=== PATIENT | female | born 1950 | race Caucasian/White ===

== ENCOUNTER 2021-02-03 09:20 | Emergency (ER) | payer MEDICARE, BC ==
[~2021-02-03] VITALS: Ht 165.1 cm; Wt 81.0 kg
[~2021-02-03 09:20] MED LIST: ASPI-482 PO; BUDE10.2 IH; DULO60CA6 PO; FLUO25PO MC; INSU100C SQ; INSU100V8 SQ; LIPITOR80 MG PO; LOSA50TA86 PO; MELO15TA23 PO; POTA99TA PO; RANI-376 PO; TRIA1TAB5 PO
--- NOTE | 2021-02-03 09:51 | EKG ---
[address] [address] Test Date: 2021-02-03 Test Time: 09:25:55 Pat Name: JALEESA FLORES Department: Room: Gender: F Insurance Investigator: : 1950 Requested By: TIM CHIU Order Number: [id number] Reading MD: Measurements Intervals [place] Rate: 119 P: 38 NM: 120 QRS: 17 QRSD: 76 T: 28 QT: 308 QTc: 440 Interpretive Statements SINUS TACHYCARDIA OTHERWISE NORMAL ECG RI6.02 No previous ECG available for comparison
[2021-02-03 10:30] LABS: BASO % 1 % (0-3); EOS % 0 % (0-3); HEMATOCRIT 44.5 % (36.0-47.0); HEMOGLOBIN 14.7 g/dL (12.0-15.5); LYMPH # 1.1 x10^3/uL (1.0-4.8); LYMPH % 12 % (24-48); MEAN CORPUSCULAR HEMOGLOBIN 30 pg (25-35); MEAN CORPUSCULAR HGB CONC 33 g/dL (31-37); MEAN CORPUSCULAR VOLUME 90 fL (79-100); MONO # 0.5 x10^3/uL (0.0-1.1); MONO % 6 % (0-9); NEUT # 7.4 x10^3uL (1.8-7.7); NEUT % 81 % (31-73); PLATELET COUNT 253 x10^3/uL (140-400); RED BLOOD COUNT 4.94 x10^6/uL (3.50-5.40); RED CELL DISTRIBUTION WIDTH 14.1 % (11.5-14.5); WHITE BLOOD COUNT 9.1 x10^3/uL (4.0-11.0)
--- NOTE | 2021-02-03 10:39 | RAD ---
XR CHEST 1V History: Reason: weakness / Spl. Instructions: / History: Comparison: September 08, 2011 Findings: No consolidation or pleural effusion. Normal heart size. No pneumothorax. Postoperative changes lower cervical spine. Prior granulomatous disease within the chest. Impression: 1. No acute cardiopulmonary process. Electronically signed by: Mian Zapata DO (02/03/2021 10:37 AM) [id number]
[2021-02-03] MEDS ORDERED: CONTRAST GIVEN. MC PRN (10:45)
[2021-02-03] MEDS ORDERED: IOHEXOL 350 MG/ML 100 ML VIAL. IV ONE ×3 (10:45→11:15)
[2021-02-03 10:49] LABS: CALCIUM 8.9 mg/dL (8.5-10.1); CREATININE 0.8 mg/dL (0.6-1.0); GFR 70.5; POTASSIUM 4.4 mmol/L (3.5-5.1)
[2021-02-03 10:50] LABS: ACETAMIN < 2.0 mcg/mL (10-30); SALIC < 2.8 mg/dL (2.8-20.0)
--- NOTE | 2021-02-03 11:00 | RAD ---
Noncontrast CT scan of the head without comparison for weakness. TECHNIQUE: Contiguous axial CT images are obtained from skull base to the vertex. No IV contrast was administered. FINDINGS: There is no evidence of acute territorial infarction, or intracranial hemorrhage. There is no mass, mass effect, or midline shift. The ventricles and subarachnoid spaces are grossly unremarkab le. No extra axial fluid collection identified. The posterior fossa, brainstem, and bilateral orbits are normal. Vague hypodensity within the insular deep white matter is likely sequela of old lacunar i nfarct. There is preservation of normal density within the insular cortex and basal ganglia. Mastoid air cells are clear. Visualized ethmoid and sphenoid sinuses are clear. Within the frontal sinuses, t here is a 2.4 cm circumscribed slightly expansile osseous tumor with dense internal calcified matrix, and a generally benign appearance. 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 Less likely given this patient's age is fibrous dysplasia. Other etiologies of fibro-osseous tumo rs cannot be excluded. MRI may be of benefit to reinforce impression of benignity. IMPRESSION: 1. No acute intracranial abnormality. 2. 2.4 cm osseous tumor of the frontal sinus, with probably benign imaging features at CT scan. 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 MRI is recommended to further evaluate and perhaps reinforce the impression of benignity. PQRS Compliance Statement: One or more of the following individualized dose reduction techniques were utilized for this examinat ion: 1. Automated exposure control 2. Adjustment of the mA and/or kV according to patient size 3. Use of iterative reconstruction technique Electronically signed by: Patricio Kelley MD (02/03/2021 10:58 AM) [id number]
[2021-02-03 11:03] LABS: ALBUMIN 3.2 g/dL (3.4-5.0); DIRECT BILIRUBIN 0.1 mg/dL (0.0-0.2); MAGNESIUM 1.7 mg/dL (1.8-2.4); TOTAL BILIRUBIN 0.4 mg/dL (0.2-1.0); TOTAL PROTEIN 7.3 g/dL (6.4-8.2)
--- NOTE | 2021-02-03 12:39 | RAD ---
CTA HEAD AND NECK W/WO CONTRAST History:Reason: dizzy/weak on left side / Spl. Instructions: / History: Technique: After bolus of intravenous contrast, volumetric CT data acquisition was acquired of the he ad and neck. Multiplanar reconstruction images to include MIP and 3-D reconstruction images are submi tted. Exposure: One or more of the following individualized dose reduction techniques were utilized for thi s examination: 1. Automated exposure control 2. Adjustment of the mA and/or kV according to patient size 3. Use of iterative reconstruction technique. Comparison: Head CT February 10, 2014 and February 03, 2021 Any determination of stenosis is based on NASCET criteria. Head CTA: ICA: No stenosis, occlusion or aneurysm. Mild atheromatous plaque within the carotid siphons. MCA: No stenosis, occlusion or aneurysm. REVA: No stenosis, occlusion or aneurysm. DENTAL THERAPIST: No stenosis, occlusion or aneurysm. origin of the right posterior cerebral artery. Patent left posterior communicating artery. Basilar artery: No stenosis, occlusion or aneurysm. Distal vertebral arteries: No stenosis, occlusion or aneurysm. CT angiogram neck: Aortic arch: Mild atheromatous plaque within the aortic arch and branch vessels. Common carotid arteries: No stenosis, occlusion or dissection. Internal carotid arteries: No stenosis, occlusion or dissection. Mild atheromatous plaque within the proximal internal carotid arteries. External carotid arteries: Patent Vertebral arteries: No stenosis, occlusion or dissection. Imaged lung apices are unremarkable. Small left thyroid nodule measures 1.1 x 0.4 cm. 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 Postoperative ch anges cervical spine interest acquisition and interbody fusion C5-C7. Grade 1 anterolisthesis C4 on C 5. Multilevel cervical spondylosis. Facet fusion C2-C3. Facet arthropathy, left greater than right. Impression: 1. No arterial stenosis or occlusion within the head or neck. 2. Mild atheromatous plaque. 3. Left frontal sinus osteoma, unchanged compared to 2013. 4. Small right thyroid nodule. Electronically signed by: Mian Zapata DO (02/03/2021 12:37 PM) [id number]
--- NOTE | 2021-02-03 12:51 | PHYS DOC ---
Past History Past Medical History: Depression, Diabetes, GERD, High Cholesterol, Other Additional Past Medical Histor: chronic pain, neuropathy, RLS, factor 5 leiden Alcohol Use: None General Adult EDM: Chief Complaint: ALTERED MENTAL STATUS HPI: HPI: 70 yo F PMH factor V leiden, and TIA 2019 presents to the ED with complaints of left-sided weakness that started when patient woke up this morning, last known well was around 9 PM last night. Review of Systems: Review of Systems: Constitutional: Denies fever or chills Eyes: Denies change in visual acuity HENT: Denies nasal congestion or sore throat Respiratory: Denies cough or shortness of breath Cardiovascular: Denies chest pain or edema GI: Denies abdominal pain, nausea, vomiting, bloody stools or diarrhea : Denies dysuria Musculoskeletal: Denies back pain or joint pain Integument: Denies rash Neurologic: Denies headache, focal weakness or sensory changes Endocrine: Denies polyuria or polydipsia Lymphatic: Denies swollen glands Psychiatric: Denies depression or anxiety Current Medications: Current Meds: Current Medications Medications (Trade) Dose Ordered Sig/Cristina Start Time Stop Time Status Last Admin Dose Admin Info (Do NOT chart on this entry -- for MONITORING) 1 each PRN DAILY PRN 02/03/21 10:45 02/05/21 10:44 Iohexol (Omnipaque 350 Mg/ml) 100 ml 1X ONCE 02/03/21 11:15 02/03/21 11:16 UNV Allergies: Allergies: Allergies Coded Allergies Type Severity Reaction Last Updated Verified acetaminophen Allergy Intermediate SWELLING AND RASH 04/03/14 Yes hydrocodone Allergy Intermediate SWELLING AND RASH 04/03/14 Yes Sulfa (Sulfonamide Antibiotics) Allergy Mild RASH 04/03/14 No cephalexin Allergy Mild RASH 04/03/14 No cyclobenzaprine Allergy Mild SWELLING 04/03/14 No levofloxacin Allergy Mild RESPIRATORY DISTRESS 04/03/14 Yes meperidine Allergy Mild NAUSEA VOMITTING 04/03/14 No povidone-iodine Allergy Mild RASH 04/03/14 Yes simvastatin Allergy Mild MUSCLE CRAMPS 04/03/14 No codeine Adverse Reaction Severe RESPIRATORY ARREST 04/03/14 Yes chlorpheniramine Adverse Reaction Intermediate TACHYCARDIA 04/03/14 Yes pseudoephedrine Adverse Reaction Intermediate TACHYCARDIA 04/03/14 Yes Physical Exam: PE: Constitutional: Well developed, well nourished, no acute distress, non-toxic appearance. HENT: Normocephalic, atraumatic, Eyes: PERRLA, EOMI, conjunctiva normal, no discharge. Neck: Normal range of motion, supple, Cardiovascular: S1/2 present, regular rhythm Lungs & Thorax: Speaking in full sentences, bilateral equal chest rise, no tachypnea or increased work of breathing Abdomen: soft, no tenderness, Skin: Warm, dry, no erythema, no rash. [] Back: No tenderness, no CVA tenderness. [] Extremities: No tenderness, no cyanosis, no lower extremity edema Neurologic: NIHSS0, normal FNF/HTS, Alert and oriented X 3, normal motor function, normal sensory function, no focal deficits noted. [] Psychologic: Affect normal, judgement normal, mood normal. [] Current Patient Data: Labs: Laboratory Tests Test 02/03/21 10:00 White Blood Count 9.1 x10^3/uL (4.0-11.0) Red Blood Count 4.94 x10^6/uL (3.50-5.40) Hemoglobin 14.7 g/dL (12.0-15.5) Hematocrit 44.5 % (36.0-47.0) Mean Corpuscular Volume 90 fL (79-100) Mean Corpuscular Hemoglobin 30 pg (25-35) Mean Corpuscular Hemoglobin Concent 33 g/dL (31-37) Red Cell Distribution Width 14.1 % (11.5-14.5) Platelet Count 253 x10^3/uL (140-400) Neutrophils (%) (Auto) 81 % (31-73) H Lymphocytes (%) (Auto) 12 % (24-48) L Monocytes (%) (Auto) 6 % (0-9) Eosinophils (%) (Auto) 0 % (0-3) Basophils (%) (Auto) 1 % (0-3) Neutrophils # (Auto) 7.4 x10^3uL (1.8-7.7) Lymphocytes # (Auto) 1.1 x10^3/uL (1.0-4.8) Monocytes # (Auto) 0.5 x10^3/uL (0.0-1.1) Eosinophils # (Auto) 0.0 x10^3/uL (0.0-0.7) Basophils # (Auto) 0.0 x10^3/uL (0.0-0.2) Prothrombin Time 10.3 SEC (9.4-11.4) Prothrombin Time INR 1.0 (0.9-1.1) Activated Partial Thromboplast Time 24 SEC (23-33) Sodium Level 140 mmol/L (136-145) Potassium Level 4.4 mmol/L (3.5-5.1) Chloride Level 102 mmol/L (98-107) Carbon Dioxide Level 29 mmol/L (21-32) Anion Gap 9 (6-14) Blood Urea Nitrogen 18 mg/dL (7-20) Creatinine 0.8 mg/dL (0.6-1.0) Estimated GFR (Cockcroft-Gault) 70.5 Glucose Level 280 mg/dL (70-99) H Calcium Level 8.9 mg/dL (8.5-10.1) Magnesium Level 1.7 mg/dL (1.8-2.4) L Total Bilirubin 0.4 mg/dL (0.2-1.0) Direct Bilirubin 0.1 mg/dL (0.0-0.2) Aspartate Amino Transferase (AST) 14 U/L (15-37) L Alanine Aminotransferase (ALT) 26 U/L (14-59) Alkaline Phosphatase 94 U/L (46-116) Creatine Kinase 56 U/L (26-192) Troponin I Quantitative < 0.017 ng/mL (0-0.055) GK-Lmy-K-Type Natriuretic Peptide 45 pg/mL (0-124) Total Protein 7.3 g/dL (6.4-8.2) Albumin 3.2 g/dL (3.4-5.0) L Salicylates Level < 2.8 mg/dL (2.8-20.0) L Salicylate Last Dose Date Unknown Salicylate Last Dose Time Unknown Acetaminophen Level < 2.0 mcg/mL (10-30) L Acetaminophen Last Dose Date Unknown Acetaminophen Last Dose Time Unknown Vital Signs: Vital Signs Date Time Temp Pulse Resp B/P (MAP) Pulse Ox O2 Delivery O2 Flow Rate FiO2 02/03/21 12:00 126 16 128/76 (93) 96 Room Air 02/03/21 09:24 99.3 EKG: EKG: Sinus tachycardia 119 bpm, no axis deviation, normal intervals, no T wave inve rsions, no ST elevations or ST depressions Radiology/Procedures: Radiology/Procedures: IMAGING REPORT Signed PATIENT: JALEESA FLORES EACCOUNT: [id number] : 1950 LOCATION: ER AGE: 70 SEX: F EXAM STATUS: REG ER ORD. PHYSICIAN: TIM CHIU DO REASON: dizzy/weak on left side PROCEDURE: CT ANGIOGRAPHY HEAD AND NECK CTA HEAD AND NECK W/WO CONTRAST History:Reason: dizzy/weak on left side / Spl. Instructions: / History: Technique: After bolus of intravenous contrast, volumetric CT data acquisition was acquired of the head and neck. Multiplanar reconstruction images to include MIP and 3-D reconstruction images are submitted. Exposure: One or more of the following individualized dose reduction techniques were utilized for this examination: 1. Automated exposure control 2. Adjustment of the mA and/or kV according to patient size 3. Use of iterative reconstruction technique. Comparison: Head CT February 10, 2014 and February 03, 2021 Any determination of stenosis is based on NASCET criteria. Head CTA: ICA: No stenosis, occlusion or aneurysm. Mild atheromatous plaque within the carotid siphons. MCA: No stenosis, occlusion or aneurysm. REVA: No stenosis, occlusion or aneurysm. DEALER ACCOUNTS INVESTIGATOR: No stenosis, occlusion or aneurysm. origin of the right posterior cerebral artery. Patent left posterior communicating artery. Basilar artery: No stenosis, occlusion or aneurysm. Distal vertebral arteries: No stenosis, occlusion or aneurysm. CT angiogram neck: Aortic arch: Mild atheromatous plaque within the aortic arch and branch vessels. Common carotid arteries: No stenosis, occlusion or dissection. Internal carotid arteries: No stenosis, occlusion or dissection. Mild atheromatous plaque within the proximal internal carotid arteries. External carotid arteries: Patent Vertebral arteries: No stenosis, occlusion or dissection. Imaged lung apices are unremarkable. Small left thyroid nodule measures 1.1 x 0.4 cm. 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 Postoperative changes cervical spine interest acquisition and interbody fusion C5-C7. Grade 1 anterolisthesis C4 on C5. Multilevel cervical spondylosis. Facet fusion C2-C3. Facet arthropathy, left greater than right. Impression: 1. No arterial stenosis or occlusion within the head or neck. 2. Mild atheromatous plaque. 3. Left frontal sinus osteoma, unchanged compared to 2014. 4. Small right thyroid nodule. Electronically signed by: Mian Zapata DO (02/03/2021 12:37 PM) [id number] DICTATED AND SIGNED BY: MIAN ZAPATA DO DATE: 02/03/21 1219 CC: JW LEW MD; TIM CHIU DO ~MTH0 0 IMAGING REPORT Signed PATIENT: JALEESA FLORES EACCOUNT: [id number] : 1950 LOCATION: ER AGE: 70 SEX: F EXAM STATUS: REG ER ORD. PHYSICIAN: TIM CHIU DO REASON: weakness PROCEDURE: CT HEAD WO CONTRAST Noncontrast CT scan of the head without comparison for weakness. TECHNIQUE: Contiguous axial CT images are obtained from skull base to the vertex. No IV contrast was administered. FINDINGS: There is no evidence of acute territorial infarction, or intracranial hemorrhage. There is no mass, mass effect, or midline shift. The ventricles and subarachnoid spaces are grossly unremarkable. No extra axial fluid collection i dentified. The posterior fossa, brainstem, and bilateral orbits are normal. Vague hypodensity within the insular deep white matter is likely sequela of old lacunar infarct. There is preservation of normal density within the insular cortex and basal ganglia. Mastoid air cells are clear. Visualized ethmoid and sphenoid sinuses are clear. Within the frontal sinuses, there is a 2.4 cm circumscribed slightly expansile osseous tumor with dense internal calcified matrix, and a generally benign appearance. 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 Less likely given this patient's age is fibrous dysplasia. Other etiologies of fibro-osseous tumors cannot be excluded. MRI may be of benefit to reinforce impression of benignity. IMPRESSION: 1. No acute intracranial abnormality. 2. 2.4 cm osseous tumor of the frontal sinus, with probably benign imaging features at CT scan. 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 MRI is recommended to further evaluate and perhaps reinforce the impression of benignity. PQRS Compliance Statement: One or more of the following individualized dose reduction techniques were utilized for this examination: 1. Automated exposure control 2. Adjustment of the mA and/or kV according to patient size 3. Use of iterative reconstruction technique Electronically signed by: Patricio Girard MD (02/03/2021 10:58 AM) [id number] DICTATED AND SIGNED BY: PATRICIO GIRARD MD DATE: 02/03/21 1040 CC: JW LEW MD; TIM CHIU DO ~MTH0 0 IMAGING REPORT Signed PATIENT: JALEESA FLORES EACCOUNT: [id number] : 1950 LOCATION: ER AGE: 70 SEX: F EXAM STATUS: REG ER ORD. PHYSICIAN: TIM CHIU DO REASON: weakness PROCEDURE: PORTABLE CHEST 1V XR CHEST 1V History: Reason: weakness / Spl. Instructions: / History: Comparison: September 08, 2011 Findings: No consolidation or pleural effusion. Normal heart size. No pneumothorax. Postoperative changes lower cervical spine. Prior granulomatous disease within the chest. Impression: 1. No acute cardiopulmonary process. Electronically signed by: Mian Zapata DO (02/03/2021 10:37 AM) [id number] DICTATED AND SIGNED BY: MIAN ZAPATA DO DATE: 02/03/21 1035 CC: JW LEW MD; TIM CHIU DO ~MTH0 0 Heart Score: C/O Chest Pain: Yes Risk Factors: Risk Factors: DM, Current or recent (<one month) smoker, HTN, HLP, family history of CAD, obesity. Risk Scores: Score 0 - 3: 2.5% MACE over next 6 weeks - Discharge Home Score 4 - 6: 20.3% MACE over next 6 weeks - Admit for Clinical Observation Score 7 - 10: 72.7% MACE over next 6 weeks - Early Invasive Strategies Course & Med Decision Making: Course & Med Decision Making Pertinent Labs and Imaging studies reviewed. (See chart for details) Concern for weakness and ataxia that occurred prior to arrival. Symptoms lasted for a few hours but have resolved upon ED arrival. Stroke scale 0. No ischemic stroke on CT. CT head with no LVO or stenosis to explain patient's symptoms. It does show frontal sinus osteoma, stable since 2013. Patient with factor V Leiden on Plavix and history of prior TIA 2 years ago. Urinalysis with 0 bacteria, no LE, no nitrates (obtained via straight cath). Patient afebrile with no leukocytosis. Patient persistently tachycardic but no ketonuria or DAVE- suspect dehydration >> infection, no sirs. Knees and slightly low. Patient was bolused with IV fluids and given IV magnesium. Patient's daughter present in ED. I reviewed labs and imaging with them and recommended transfer to [facility] for neurology evaluation, consider MRI. Both patient daughter agree with this plan patient stable at time of transfer. [] I have spoken with the patient and/or caregivers. I have explained the patient's condition, diagnosis and treatment plan based on the information available to me at this time. I have answered the patient's and/or caregivers questions and answered any concerns. The patient and/or caregivers have as good an understanding of the patient's diagnosis, condition and treatment plan as can be expected at this point. The patient has been stabilized within the capability of the emergency department. The patient will be transported for further care and management or will be moved to an observation or inpatient service. I have communicated with the staff or medical practitioner taking over this patient's care. Wing Disclaimer: Wing Disclaimer: This electronic medical record was generated, in whole or in part, using a voice recognition dictation system. Departure Departure: Impression: Primary Impression: Ataxia Additional Impressions: Weakness Osteoma Disposition: ADMITTED INPT THIS HOSP Condition: STABLE ([facility], Dr. Blankenship) Referrals: JW LEW MD (PCP) TIM CHIU DO Feb 03, 2021 12:51
[2021-02-03 13:01] LABS: BARBITURATES NEG (NEG); BENZODIAZEPINES NEG (NEG); CANNABINOIDS NEG (NEG); COCAINE NEG (NEG); METHADONE NEG (NEG); OPIATES NEG (NEG); PHENCYCLIDINE NEG (NEG)
[2021-02-03 13:03] LABS: AMPHETAMINE/METHAMPHETAMINE NEG (NEG)
[2021-02-03 13:22] LABS: CLARITY,URINE CLEAR; COLOR,URINE YELLOW
[2021-02-03 13:23] LABS: BACTERIA,URINE 0 /HPF (0-FEW); BILIRUBIN,URINE NEG (NEG); GLUCOSE,URINE 500 mg/dL (NEG); NITRITE,URINE NEG (NEG); RBC,URINE OCC /HPF (0-2); SQUAMOUS EPITHELIAL CELL,UR OCC /LPF; UROBILINOGEN,URINE 0.2 mg/dL (0.2 mg/dL); WBC,URINE OCC /HPF (0-4)
[2021-02-03] MEDS ORDERED: IV NORMAL SALINE 1,000ML 1,000 ML IV ONE ×2 (14:00)
[2021-02-03] MEDS ORDERED: MAGNESIUM SULFATE 2GM 50 ML IV ONE (14:00)
[2021-02-03 15:00] VITALS: BP 172/72
== END 2021-02-03 16:38 | disposition admitted as inpatient to this hospital (09) ==
LOC: ER 09:20
DX: R27.0 Ataxia, unspecified (principal); D16.9 Benign neoplasm of bone and articular cartilage, unspecified; R53.1 Weakness; M47.812 Spondylosis without myelopathy or radiculopathy, cervical region; R51.9 Headache, unspecified; R41.82 Altered mental status, unspecified; R07.89 Other chest pain; E04.1 Nontoxic single thyroid nodule; F32.9 Major depressive disorder, single episode, unspecified; E11.40 Type 2 diabetes mellitus with diabetic neuropathy, unspecified; K21.9 Gastro-esophageal reflux disease without esophagitis; E78.00 Pure hypercholesterolemia, unspecified; G89.29 Other chronic pain; G25.81 Restless legs syndrome; Z88.5 Allergy status to narcotic agent; Z88.6 Allergy status to analgesic agent; Z88.1 Allergy status to other antibiotic agents; Z88.2 Allergy status to sulfonamides; Z91.041 Radiographic dye allergy status; Z88.8 Allergy status to other drugs, medicaments and biological substances
CPT/HCPCS: 36415; 70450; 70496; 70498; 71045; 80048; 80076; 80307; 80329; 81001; 82550; 83735; 83880; 84484; 85025; 85610; 85730; 93005; 96365; 99285; J3475; J7030; P9612; Q9967; G0480